=== PATIENT | female | born 1960 | race Caucasian/White ===

== ENCOUNTER 2017-10-08 07:55 | Day surgery (SDC) | payer OTHER ==
[~2017-10-08] VITALS: Ht 170.2 cm; Wt 79.8 kg
[~2017-10-08 07:55] MED LIST: ACET500; AMIT10; AMIT10 PO; AMLO5 PO; AMOX500 PO; ASCO500 PO; ASPI325 PO; ATOR10 PO; ATOR20 PO; Amitriptyline H10 MG PO; Aspirin EC81 MG PO; CAPHYD; CHOL10002 PO; Central-Vite1 EAC3 PO; Cortef5 MG PO; ERGO400 PO; FERSU300; Fergon240 M1 PO; Ferrous Glucon324 MG PO; Fruity C250 MG PO; HYDACE5 PO; HYDMOR2; Hydrocortisone10 MG PO; Hydrocortisone5 MG PO; LEVOXYL PO; LEVSOD100 PO; LEVSOD50 PO; LISI20; LOPE2C PO; LOSA50; METR500; OMEPRAZOLE MAGN20 MG PO; Omeprazole20 M1 PO; PANT40; PARO10; PROM25; Prilosec Otc20 MG PO; SERT50 PO
== END 2017-10-08 22:41 | disposition home or self-care (01) ==
LOC: ORSCMMR 07:55
PROVIDERS: Internal Medicine Gastroenterology
PROC: 0DBK8ZX Excision of Ascending Colon, Via Natural or Artificial Opening Endoscopic, Diagnostic (ICD-10-PCS; principal; 2017-10-08 09:00)
PROC: 0DBN8ZX Excision of Sigmoid Colon, Via Natural or Artificial Opening Endoscopic, Diagnostic (ICD-10-PCS; principal; 2017-10-08 09:00)
DX: Z12.11 Encounter for screening for malignant neoplasm of colon (principal); D12.2 Benign neoplasm of ascending colon; K63.5 Polyp of colon; I10 Essential (primary) hypertension; E03.9 Hypothyroidism, unspecified; F32.9 Major depressive disorder, single episode, unspecified; Z86.73 Personal history of transient ischemic attack (TIA), and cerebral infarction without residual deficits; E27.40 Unspecified adrenocortical insufficiency; Z79.82 Long term (current) use of aspirin; Z79.899 Other long term (current) drug therapy
CPT/HCPCS: 88305; J7120

== ENCOUNTER 2018-08-29 00:42 | Observation (INO) | payer OTHER ==
[~2018-08-29] VITALS: Ht 170.2 cm; Wt 85.4 kg
[2018-08-29 03:42] LABS: Alanine Aminotransfer (ALT/SGP 33 U/L (12-78); Albumin/Globulin Ratio 1.1 (0.8-1.8); Alk Phos 88 U/L (50-136); Anion Gap 8 mmol/L (6-16); Aspartate Aminotrans (AST/SGOT 21 U/L (12-37); Bilirubin, Total 0.3 mg/dL (0.1-1.0); Blood Urea Nitrogen 11 mg/dL (8-24); Bun/Creatinine Ratio 11.8 (12.0-20.0); CO2, Blood 24 mmol/L (21-32); Calcium, Blood 8.6 mg/dL (8.5-10.1); Chloride, Blood 111 mmol/L (98-108); Creatinine, Blood 0.93 mg/dL (0.40-1.00); Globulin, Blood 3.6 g/dL (2.2-4.0); Glomerular Filtration Rate >60 (60-); Glucose, Blood 122 mg/dL (70-99); Potassium, Blood 3.1 mmol/L (3.5-5.5); Sodium, Blood 143 mmol/L (136-145); Total Protein, Blood 7.6 g/dL (6.4-8.2)
[2018-08-29] MEDS ORDERED: ONDA4ODT MM (03:50)
[2018-08-29 04:54] LABS: BASOPHILS ABSOLUTE AUTO 0.02 K/mm3 (0.00-0.23); BASOPHILS PERCENT AUTO 0 % (0-2); EOSINOPHILS PERCENT AUTO 2 % (0-6); Hematocrit 42.6 % (33.0-51.0); Hemoglobin 13.9 g/dL (11.5-16.0); IMMATURE GRAN ABSOLUTE AUTO 0.03 K/mm3 (0.00-0.10); IMMATURE GRAN PERCENT AUTO 0 % (0-1); LYMPHOCYTES PERCENT AUTO 21 % (21-46); MONOCYTES ABSOLUTE AUTO 0.27 K/mm3 (0.16-1.47); MONOCYTES PERCENT AUTO 4 % (4-13); Mean Corpuscular HGB 27.9 pg (26.0-34.0); Mean Corpuscular HGB Conc 32.6 g/dL (31.5-36.5); Mean Corpuscular Volume 85 fL (80-100); Mean Platelet Volume 11.7 fL (9.1-12.4); NEUTROPHILS ABSOLUTE AUTO 4.91 K/mm3 (1.96-9.15); NEUTROPHILS PERCENT AUTO 73 % (41-73); Platelet Count 261 K/mm3 (150-400); RDW Coefficient Variation 13.7 % (11.7-14.2); RDW Standard Deviation 42.7 fL (35.1-46.3); Red Blood Cell Count 4.99 M/mm3 (3.80-5.20); White Blood Cell Count 6.73 K/mm3 (4.00-11.30)
--- NOTE | 2018-08-29 10:29 | NUR ---
TALKED TO DR. BARRAZA ABOUT; FEVER, WHEEZING, FLUIDS IV. CHANGE IV FLUIDS TO NS 125/HR. ADD DUONEB Q 4 HR PRN. NO TYLENOL FOR NOW AND IF HIGH FEVER CALL
--- NOTE | 2018-08-29 12:50 | NUR ---
CALLED [facility] TO FAX MED REC.
--- NOTE | 2018-08-29 13:20 | NUR ---
ADVISED OF HIGH FEVER AND WILL BE GIVING TYLENOL
--- NOTE | 2018-08-29 13:38 | NUR ---
CALLED LAB TO SEE IF THEY HAVE STOOL SAMPLE ASSTICKER MUST HAVE BEEN PRINTED IN E.R. STS THEY STILL NEED. WILL REORDER.
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
[2018-08-29] MEDS ORDERED: AMIT10 PO (18:36)
[2018-08-29] MEDS ORDERED: AMLO5 PO (18:37)
[2018-08-29] MEDS ORDERED: ATOR10 PO (18:37)
[2018-08-29] MEDS ORDERED: HYDCOR10 PO ×4 (18:38→18:40)
[2018-08-29] MEDS ORDERED: Ferosul325 MG PO (18:38)
[2018-08-29] MEDS ORDERED: SERT50 PO (18:41)
[2018-08-29] MEDS ORDERED: Omeprazole20 M1 PO (18:41)
[2018-08-29] MEDS ORDERED: LEVSOD50 PO (18:41)
[2018-08-29] MEDS ORDERED: ASCO500 PO (18:42)
[2018-08-29] MEDS ORDERED: VALS80 PO (18:42)
--- NOTE | 2018-08-29 18:44 | NUR ---
NOTIFIED MEDS RECONCILLED. STS WILL LOOK AT THEM.
[2018-08-30 05:11] LABS: Anion Gap 9 mmol/L (6-16); Blood Urea Nitrogen 9 mg/dL (8-24); Bun/Creatinine Ratio 10.8 (12.0-20.0); CO2, Blood 22 mmol/L (21-32); Calcium, Blood 7.5 mg/dL (8.5-10.1); Chloride, Blood 115 mmol/L (98-108); Creatinine, Blood 0.83 mg/dL (0.40-1.00); Glomerular Filtration Rate >60 (60-); Glucose, Blood 90 mg/dL (70-99); Sodium, Blood 146 mmol/L (136-145)
--- NOTE | 2018-08-30 06:18 | NUR ---
SHIFT SUMMARY PT HAS BEEN SLEEPING FOR MOST OF SHIFT. PT IS DIFFICULT TO UNDERSTAND. PT HAD SOME DISCOMFORT AND TX PER EMAR. PT RESPONDED WELL TO TX. NO ACUTE ISSUES NOTED. PT IS BREATHING EASY AND RESTING.
--- NOTE | 2018-08-30 16:10 | NUR ---
PATIENT ALERT AND ORIENTED. VOICE CLEARER TODAY. TOLERATED REG DIET WELL. NO N/V. INCONTINENT AT TIMES. IV POTASSIUM INFUSING VERY SLOWLY CONCURRENT W/NACL. MEDICATED FOR BILATERAL LEG PAIN W/TYLENOL WITH GOOD RESULTS. SCD'S ON. FEELING "MUCH BETTER" COMPARED TO ADMIT. COOPERATIVE. USES CALL LIGHT APPROPRIATELY. BED IN LOW POSITION. WILL CONTINUE TO MONITOR.
--- NOTE | 2018-08-30 17:50 | NUR ---
ALERT , ORIENTED. GOOD APPETITE WITHOUT N/V. IV STILL INFUSING POTASSIUM AT VERY SLOW RATE CONCURRENT W/NACL WITHOUT ANY DISCOMFORT TO PATIENT. USES BED CABRERA. NO ACUTE CHANGES. WILL CONTINUE TO MONITOR.
[2018-08-31 05:28] LABS: Anion Gap 7 mmol/L (6-16); Blood Urea Nitrogen 6 mg/dL (8-24); CO2, Blood 25 mmol/L (21-32); Calcium, Blood 8.2 mg/dL (8.5-10.1); Chloride, Blood 115 mmol/L (98-108); Creatinine, Blood 0.75 mg/dL (0.40-1.00); Glomerular Filtration Rate >60 (60-); Glucose, Blood 113 mg/dL (70-99); Potassium, Blood 3.4 mmol/L (3.5-5.5); Sodium, Blood 147 mmol/L (136-145)
[2018-08-31 06:02] LABS: Adenovirus F 40/41 Not Detected (NOT DETECT); Astrovirus Not Detected (NOT DETECT); Campylobacter Sp Not Detected (NOT DETECT); Cryptosporidium Not Detected (NOT DETECT); Cyclospora Cayetanensis Not Detected (NOT DETECT); E. Coli O157 Not Detected (NOT DETECT); Entamoeba Histolytica Not Detected (NOT DETECT); Enteroaggregative E. coli-EAEC Not Detected (NOT DETECT); Enteropathogenic E. coli-EPEC Not Detected (NOT DETECT); Enterotoxigenic E. coli-ETEC Not Detected (NOT DETECT); Giardia Lamblia Not Detected (NOT DETECT); Plesiomonas Shigelloides Not Detected (NOT DETECT); Rotavirus A Not Detected (NOT DETECT); Salmonella Sp Not Detected (NOT DETECT); Sapovirus Not Detected (NOT DETECT); Shiga Toxin-prod E. coli-STEC Not Detected (NOT DETECT); Shigella/Enteroin E. coli-EIEC Not Detected (NOT DETECT); Vibrio Cholerae Not Detected (NOT DETECT); Vibrio Sp Not Detected (NOT DETECT); Yersinia Enterocolitica Not Detected (NOT DETECT)
--- NOTE | 2018-08-31 07:31 | NUR ---
SHIFT SUMMARY PT HAD SOME INCREASED DISCOMFORT DURING SHIFT. PROVIDER WAS CALLED AND ADDITIONAL PAIN MED WAS ORDERED. PT RESPONDED WELL TO TX. TOWARDS END OF SHIFT PT HAD INCREASED SWELLING AT IV SITE AND FLUIDS WAS STOPPED. ONCOMING SHIFT RN IS GOING TO START NEW IV SITE TO CONTINUE FLUIDS. PT IS BREATHING EASY AND IS COMFORTABLE. CALL LIGHT IN REACH AND BED IN LOW POSITION.
[2018-08-31 07:41] LABS: Norovirus GI/GII Detected (NOT DETECT)
[2018-08-31] MEDS ORDERED: ONDA4ODT MM (12:19)
[2018-08-31] MEDS ORDERED: Acetaminophen325 M1 PO (12:20)
--- NOTE | 2018-08-31 16:44 | NUR ---
DISCHARGE DISCHARGE MEDICATIONS AND INSTRUCTIONS EXPLAINED TO PATIENT. PATIENT STATES UNDERSTANDING. IV REMOVED WITHOUT DIFFICULTY. BELONGINGS WITH PATIENT. PATIENT TRANSFERED TO PRIVATE VEHICLE VIA WHEELCHAIR.
== END 2018-08-31 16:44 | disposition home or self-care (01) ==
LOC: ER 00:42 → MEDS 00:43 → ER 07:39 → MEDS 07:50 → ENPENDDIS 08-31 11:26 → MEDS 08-31 16:44
PROVIDERS: Emergency Medicine; Hospitalist; ADMIT Family Medicine
DX: K52.9 Noninfective gastroenteritis and colitis, unspecified (principal); E87.6 Hypokalemia; E27.40 Unspecified adrenocortical insufficiency; E86.0 Dehydration; I10 Essential (primary) hypertension; F32.9 Major depressive disorder, single episode, unspecified; R65.10 Systemic inflammatory response syndrome (SIRS) of non-infectious origin without acute organ dysfunction; Z86.73 Personal history of transient ischemic attack (TIA), and cerebral infarction without residual deficits; Z87.891 Personal history of nicotine dependence; Z79.899 Other long term (current) drug therapy; Z23 Encounter for immunization
CPT/HCPCS: 36415; 71045; 80048; 80053; 85025; 87507; 90686; 94640; 94760; 96361; 96365; 96366; 96374; 96375; 99285-25; G0008; G0378; J2405; J2550; J3010; J3480; J7030; J7050

== ENCOUNTER 2020-07-17 07:51 | Day surgery (SDC) | payer OTHER ==
[~2020-07-17 07:51] MED LIST changes: +Acetaminophen325 M1 PO; +Ferosul325 MG PO; +HYDCOR10 PO; +Norco 5-325 Ta1 EACH PO; +ONDA4ODT MM; +VALS80 PO
== END 2020-07-17 22:44 | disposition home or self-care (01) ==
LOC: MOI US 07:51 → MOI MAM 08:00 → MOI US 08:00 → MOI MAM 07-21 08:00
DX: D24.1 Benign neoplasm of right breast (principal); D24.2 Benign neoplasm of left breast; I10 Essential (primary) hypertension; K21.9 Gastro-esophageal reflux disease without esophagitis; F41.8 Other specified anxiety disorders; E78.5 Hyperlipidemia, unspecified; E03.9 Hypothyroidism, unspecified; E55.9 Vitamin D deficiency, unspecified; E27.40 Unspecified adrenocortical insufficiency; E87.6 Hypokalemia; E78.1 Pure hyperglyceridemia; Z87.891 Personal history of nicotine dependence; Z79.899 Other long term (current) drug therapy
CPT/HCPCS: 19083; 19084; 77066; 88305; 88342; A4648; G0279